=== PATIENT | male | born 1980 | race African-American/Black ===

== ENCOUNTER 2021-04-05 08:42 | Emergency (ER) | payer OTHER, SELFPAY | END 2021-04-05 09:46 | disposition home or self-care (01) | LOC: ERS 08:42 | DX: L03.012 Cellulitis of left finger (principal); V89.2XXA Person injured in unspecified motor-vehicle accident, traffic, initial encounter | CPT/HCPCS: 99284 ==

== ENCOUNTER 2023-01-14 04:49 | Emergency (ER) | payer OTHER, SELFPAY ==
[2023-01-14 05:55] LABS: #Monocytes 0.9 thou/uL (0.11-0.59); #Neutrophils 7.9 thou/uL (1.40-6.50); %Basophils 0.2 % (0.0-1.0); %Lymphocytes 11.2 % (21.0-51.0); %Neutrophils 79.2 % (42.0-75.0); Hematocrit 45.4 % (42.0-52.0); Hemoglobin 15.8 g/dL (14.0-18.0); Mean Corpuscular HGB CONC 34.8 g/dL (32.0-36.0); Mean Corpuscular Hemoglobin 31.2 pg (27.0-31.0); Mean Corpuscular Volume 89.5 fl (78.0-98.0); Platelet Count 260 10x3/uL (130-400); Red Blood Cell (RBC) Count 5.07 mill/uL (4.70-6.10); White Blood Cell (WBC) Count 9.9 10x3/uL (4.8-10.8)
[2023-01-14 06:02] LABS: Amphetamine Not Detected (NotDetected); Barbiturates Screen Not Detected (NotDetected); Benzodiazepine Screen Not Detected (NotDetected); Cocaine Metabolite Screen Detected (NotDetected); Methadone Not Detected (NotDetected); Methamphetamine Not Detected (NotDetected); Opiate Screen Not Detected (NotDetected); Oxycodone Screen Not Detected (NotDetected); Phencyclidine (PCP) Not Detected (NotDetected); THC/Cannabinoid Screen Not Detected (NotDetected); Tricyclic Screen Not Detected (NotDetected)
[2023-01-14 06:18] LABS: Acetaminophen Less than 10 mcg/mL (10.0-30.0); Alcohol Less than 10.0 mg/dL (Less than 10); Salicylate Less than 8.0 mg/dL (15.0-30.0)
[2023-01-14 06:20] LABS: ALT (SGPT) 26 U/L (8-55); AST (SGOT) 45 U/L (5-34); Albumin 5.2 g/dL (3.5-5.0); Alkaline Phosphatase 51 U/L (40-110); Anion Gap 19 mmol/L (10-20); BUN (Urea Nitrogen) 17 mg/dL (8.9-20.6); Bilirubin, Total 1.6 mg/dL (0.2-1.2); Calc. Creatinine Clearance 0 mL/min (70-130); Calcium 9.8 mg/dL (7.8-10.44); Carbon Dioxide 21 mmol/L (22-29); Chloride 101 mmol/L (98-107); Estimated GFR 73; Globulin 2.7 g/dL (2.4-3.5); Glucose 101 mg/dL (70-105); Potassium 3.6 mmol/L (3.5-5.1); Protein, Total 7.9 g/dL (6.0-8.3); Sodium 137 mmol/L (136-145)
== END 2023-01-14 10:48 | disposition home or self-care (01) ==
LOC: ERS 04:49
DX: R45.851 Suicidal ideations (principal); F14.10 Cocaine abuse, uncomplicated; F20.0 Paranoid schizophrenia; F17.210 Nicotine dependence, cigarettes, uncomplicated
CPT/HCPCS: 36415; 80053; 80306; 80307; 84443; 85025; 93005

== ENCOUNTER 2024-04-26 00:57 | Emergency (ER) | payer SELFPAY ==
[2024-04-26] MEDS ORDERED: Ziprasidone 20 MG VIAL ONE (01:31)
[2024-04-26] MEDS ORDERED: Sterile Water 10 ML ONE (01:31)
[2024-04-26 04:12] LABS: Hematocrit 37.5 % (42.0-52.0); Hemoglobin 12.7 g/dL (14.0-18.0); Mean Corpuscular HGB CONC 33.9 g/dL (32.0-36.0); Mean Corpuscular Hemoglobin 31.6 pg (27.0-31.0); Mean Corpuscular Volume 93.3 fL (78.0-98.0); Platelet Count 289 10x3/uL (130-400); RBC Distribution Width 12.7 % (11.5-14.5); Red Blood Cell (RBC) Count 4.02 mill/uL (4.70-6.10)
[2024-04-26 04:13] LABS: %Lymphocytes 26.1 % (21.0-51.0); %Monocytes 6.5 % (0.0-10.0); %Neutrophils 66.6 % (42.0-75.0); Mean Platelet Volume 8.9 fL (7.4-10.4)
[2024-04-26 04:14] LABS: %Basophils 0.2 % (0.0-1.0); %Eosinophils 0.4 % (0.0-10.0)
[2024-04-26 04:15] LABS: #Basophils Less than 0.03 10x3/uL (0.0-0.2); #Eosinophils Less than 0.03 10x3/uL (0.0-0.7)
[2024-04-26 05:01] LABS: Acetaminophen Less than 10 mcg/mL (Less than 10); Alcohol Less than 10.0 mg/dL (Less than 10); Salicylate Less than 8.0 mg/dL (Less than 8.0)
== END 2024-04-26 08:39 ==
LOC: ERS 00:57
DX: R45.851 Suicidal ideations (principal); F29 Unspecified psychosis not due to a substance or known physiological condition; F17.210 Nicotine dependence, cigarettes, uncomplicated
CPT/HCPCS: 80307; 82550; 84443; 85025; 93005; 96372; 99285; J3486

== ENCOUNTER 2024-11-07 22:12 | Emergency (ER) | payer OTHER ==
[2024-11-07 22:55] LABS: #Basophils Less than 0.03 10x3/uL (0.0-0.2); #Eosinophils Less than 0.03 10x3/uL (0.0-0.7); #Monocytes 0.42 10x3/uL (0.11-0.59); #Neutrophils 4.66 10x3/uL (1.40-6.50); %Basophils 0.3 % (0.0-1.0); %Eosinophils 0.0 % (0.0-10.0); %Lymphocytes 18.2 % (21.0-51.0); %Monocytes 6.7 % (0.0-10.0); %Neutrophils 74.3 % (42.0-75.0); Hematocrit 41.9 % (42.0-52.0); Hemoglobin 14.6 g/dL (14.0-18.0); Mean Corpuscular Hemoglobin 30.9 pg (27.0-31.0); Mean Corpuscular Volume 88.8 fL (78.0-98.0); Platelet Count 309 10x3/uL (130-400); Red Blood Cell (RBC) Count 4.72 mill/uL (4.70-6.10); White Blood Cell (WBC) Count 6.27 10x3/uL (4.8-10.8)
[2024-11-07 23:10] LABS: Acetaminophen Less than 10 mcg/mL (Less than 10); Salicylate Less than 8.0 mg/dL (Less than 8.0)
[2024-11-07 23:11] LABS: ALT (SGPT) 22 U/L (Less than 45); AST (SGOT) 23 U/L (11-34); Albumin 4.3 g/dL (3.1-4.5); Alkaline Phosphatase 47 U/L (40-110); Anion Gap 16 mmol/L (10-20); BUN (Urea Nitrogen) 8 mg/dL (8.9-20.6); Bilirubin, Total 0.3 mg/dL (0.3-1.2); Calc. Creatinine Clearance 0 mL/min (70-130); Calcium 8.8 mg/dL (7.8-10.44); Carbon Dioxide 21 mmol/L (22-29); Chloride 106 mmol/L (98-107); Globulin 3.1 g/dL (2.4-3.5); Glucose 102 mg/dL (70-105); Potassium 3.7 mmol/L (3.5-5.1); Sodium 139 mmol/L (136-145)
[2024-11-08 01:04] LABS: Bacteria/HPF None Seen HPF (None Seen); CAUTI Indications for Culture Dysuria,urgency,freq; Glucose, Urine (Dipstick) Normal (Negative); Leukocyte 250 Leu/uL (Negative); Protein, Urine (Dipstick) Negative (Neg-Trace); RBC/HPF 0-3 HPF (0-3); Specific Gravity, Urine 1.011 (1.002-1.036)
[2024-11-08 01:07] LABS: Urine Culture Reflex Yes Yes
[2024-11-08 01:08] LABS: Cocaine Metabolite Screen Negative (Negative); THC/Cannabinoid Screen Negative (Negative); Tricyclic Screen Negative (Negative)
[2024-11-09 02:25] LABS: Chlam.trachomatis by PCR,Urine Not Detected (NotDetected); GC N.gonorrhoeae PCR,UrineVOID Not Detected (NotDetected)
== END 2024-11-08 11:01 | disposition home or self-care (01) ==
LOC: ERS 22:12
DX: F43.20 Adjustment disorder, unspecified (principal); E11.9 Type 2 diabetes mellitus without complications; I10 Essential (primary) hypertension; F17.210 Nicotine dependence, cigarettes, uncomplicated
CPT/HCPCS: 80053; 80306; 80307; 81001; 85025; 87086; 87491; 87591; 93005; 96374

== ENCOUNTER 2024-11-17 17:36 | Emergency (ER) | payer OTHER ==
[2024-11-17 18:16] LABS: #Basophils Less than 0.03 10x3/uL (0.0-0.2); #Eosinophils Less than 0.03 10x3/uL (0.0-0.7); #Monocytes 0.37 10x3/uL (0.11-0.59); #Neutrophils 3.80 10x3/uL (1.40-6.50); %Basophils 0.4 % (0.0-1.0); %Eosinophils 0.0 % (0.0-10.0); %Lymphocytes 15.5 % (21.0-51.0); %Monocytes 7.4 % (0.0-10.0); %Neutrophils 76.3 % (42.0-75.0); Hematocrit 42.2 % (42.0-52.0); Hemoglobin 14.5 g/dL (14.0-18.0); Mean Corpuscular Hemoglobin 30.5 pg (27.0-31.0); Mean Corpuscular Volume 88.8 fL (78.0-98.0); Platelet Count 269 10x3/uL (130-400); Red Blood Cell (RBC) Count 4.75 mill/uL (4.70-6.10); White Blood Cell (WBC) Count 4.98 10x3/uL (4.8-10.8)
[2024-11-17 18:53] LABS: ALT (SGPT) 12 U/L (Less than 45); AST (SGOT) 22 U/L (11-34); Acetaminophen Less than 10 mcg/mL (Less than 10); Albumin 4.6 g/dL (3.1-4.5); Alkaline Phosphatase 42 U/L (40-110); Anion Gap 16 mmol/L (10-20); BUN (Urea Nitrogen) 10 mg/dL (8.9-20.6); Bilirubin, Total 0.3 mg/dL (0.3-1.2); Calc. Creatinine Clearance 0 mL/min (70-130); Calcium 9.1 mg/dL (7.8-10.44); Carbon Dioxide 20 mmol/L (22-29); Chloride 107 mmol/L (98-107); Globulin 3.0 g/dL (2.4-3.5); Glucose 161 mg/dL (70-105); Potassium 3.7 mmol/L (3.5-5.1); Salicylate Less than 8.0 mg/dL (Less than 8.0); Sodium 139 mmol/L (136-145)
[2024-11-17 22:27] LABS: Cocaine Metabolite Screen Negative (Negative); THC/Cannabinoid Screen Negative (Negative); Tricyclic Screen Negative (Negative)
[2024-11-17 22:39] LABS: Bacteria/HPF None Seen HPF (None Seen); CAUTI Indications for Culture Dysuria,urgency,freq; Glucose, Urine (Dipstick) Normal (Negative); Leukocyte Negative Leu/uL (Negative); Protein, Urine (Dipstick) Negative (Neg-Trace); Specific Gravity, Urine 1.019 (1.002-1.036)
[2024-11-17 22:41] LABS: Urine Culture Reflex No No
== END 2024-11-18 02:34 ==
LOC: ERS 17:36
DX: R45.851 Suicidal ideations (principal); E11.9 Type 2 diabetes mellitus without complications; I10 Essential (primary) hypertension; F17.210 Nicotine dependence, cigarettes, uncomplicated; Z79.84 Long term (current) use of oral hypoglycemic drugs; Z79.899 Other long term (current) drug therapy
CPT/HCPCS: 36415; 80053; 80306; 80307; 81001; 85025; 93005; 99285

== ENCOUNTER 2024-12-03 03:09 | Emergency (ER) | payer OTHER ==
[2024-12-03 05:10] LABS: #Basophils Less than 0.03 10x3/uL (0.0-0.2); #Eosinophils Less than 0.03 10x3/uL (0.0-0.7); #Monocytes 0.64 10x3/uL (0.11-0.59); #Neutrophils 6.06 10x3/uL (1.40-6.50); %Basophils 0.2 % (0.0-1.0); %Eosinophils 0.1 % (0.0-10.0); %Lymphocytes 21.1 % (21.0-51.0); %Monocytes 7.5 % (0.0-10.0); %Neutrophils 70.9 % (42.0-75.0); Hematocrit 44.0 % (42.0-52.0); Hemoglobin 14.8 g/dL (14.0-18.0); Mean Corpuscular Hemoglobin 30.1 pg (27.0-31.0); Mean Corpuscular Volume 89.4 fL (78.0-98.0); Platelet Count 301 10x3/uL (130-400); Red Blood Cell (RBC) Count 4.92 mill/uL (4.70-6.10); White Blood Cell (WBC) Count 8.55 10x3/uL (4.8-10.8)
[2024-12-03 05:26] LABS: ALT (SGPT) 21 U/L (Less than 45); AST (SGOT) 33 U/L (11-34); Albumin 4.7 g/dL (3.1-4.5); Alkaline Phosphatase 49 U/L (40-110); Anion Gap 15 mmol/L (10-20); BUN (Urea Nitrogen) 18 mg/dL (8.9-20.6); Bilirubin, Total 0.4 mg/dL (0.3-1.2); Calc. Creatinine Clearance 0 mL/min (70-130); Calcium 9.8 mg/dL (7.8-10.44); Carbon Dioxide 26 mmol/L (22-29); Chloride 101 mmol/L (98-107); Globulin 3.7 g/dL (2.4-3.5); Glucose 122 mg/dL (70-105); Potassium 4.0 mmol/L (3.5-5.1); Sodium 138 mmol/L (136-145)
[2024-12-03 05:30] LABS: Acetaminophen Less than 10 mcg/mL (Less than 10); Salicylate Less than 8.0 mg/dL (Less than 8.0)
[2024-12-03 08:25] LABS: Cocaine Metabolite Screen Negative (Negative); THC/Cannabinoid Screen Negative (Negative); Tricyclic Screen Negative (Negative)
== END 2024-12-03 15:38 ==
LOC: ERS 03:09
DX: R45.851 Suicidal ideations (principal); E11.9 Type 2 diabetes mellitus without complications; I10 Essential (primary) hypertension; F17.210 Nicotine dependence, cigarettes, uncomplicated; Z79.84 Long term (current) use of oral hypoglycemic drugs; Z79.899 Other long term (current) drug therapy
CPT/HCPCS: 80053; 80306; 80307; 85025; 93005; 99285